=== PATIENT | female | born 1965 | race Hispanic/Latino ===

== ENCOUNTER 2022-06-16 02:28 | Emergency (ER) | payer BC ==
[~2022-06-16] VITALS: Ht 170.2 cm; Wt 86.2 kg
[2022-06-16] MEDS ORDERED: IBUP-1493 PO (03:45)
[2022-06-16] MEDS ORDERED: AMOX1TAB16 PO (03:45)
[2022-06-16 03:47] VITALS: BP 112/74
[2022-06-16] MEDS ORDERED: IBUPROFEN 800 MG TAB ONE (03:55)
[2022-06-16] MEDS ORDERED: AMOX/CLAV 875/125MG TAB PO ONE (04:00)
[2022-06-16] MEDS ORDERED: IBUPROFEN 800 MG TAB PO ONE (04:00)
== END 2022-06-16 04:13 | disposition home or self-care (01) ==
LOC: EDH 02:28
DX: L03.031 Cellulitis of right toe (principal); E11.9 Type 2 diabetes mellitus without complications; E03.9 Hypothyroidism, unspecified; Z88.2 Allergy status to sulfonamides; Z88.8 Allergy status to other drugs, medicaments and biological substances; Z90.49 Acquired absence of other specified parts of digestive tract; Z85.528 Personal history of other malignant neoplasm of kidney